=== PATIENT | male | born 1955 | race Caucasian/White ===

== ENCOUNTER 2020-12-10 22:15 | Emergency (ER) | payer SELFPAY ==
[2020-12-10] MEDS ORDERED: Pepcid 20 MG VIAL IV ONE (23:05)
[2020-12-10] MEDS ORDERED: solu-MEDROL 125 MG ONE (23:05)
[2020-12-10] MEDS: Pepcid 20 MG VIAL IV ONE (23:08)
[2020-12-10] MEDS: solu-MEDROL 125 MG IV ONE (23:08)
[2020-12-10 23:09] LABS: Absolute Neutrophil Ct (ANC) 9.21 (1.4-6.9); BASOPHIL % 0.2 % (0.0-0.4); Basophil (Absolute #) 0.03 (0-0.4); Eosinophil % 1.2 % (0.00-5.0); Eosinophil (Absolute #) 0.15 (0-0.5); Hematocrit 28.7 % (42-50); Hemoglobin 8.3 gm/dl (12.5-18.0); Lymphocyte (Absolute #) 1.94 (1.0-4.6); Lymphocytes % 15.7 % (24.0-44.0); Mean Cell Volume 82.9 fl (78-100); Mean Corpuscular Hgb Concent. 28.9 g/dl (32-36); Mean Platelet Volume 8.5 fl (7.5-11.0); Monocyte (Absolute #) 1.01 (0.0-1.3); Monocytes % 8.2 % (0.0-12.0); Neutrophil % 74.7 % (36.0-66.0); Platelet Count 525 K/mm3 (150-450); Red Blood Count 3.46 M/mm3 (4.1-5.6); Red Cell Distribution Width 15.3 % (11.5-14.0); White Blood Count 12.3 K/mm3 (4.0-10.5)
--- NOTE | 2020-12-10 23:20 | ERPHSYRPT ---
- History of Present Illness Time Seen by Provider: 12/10/20 22:25 Source: patient Exam Limitations: no limitations Patient Subjective Stated Complaint: pt states he has been having some tightness in his throat since approx 2029. states he had fish the last 3 weeks on fridays and thinks it was cooked in the same oil as shrimp and caused him to have an allergic reaction. states he was seen in [facility]nesday and was given a shot that relieved symptoms until today at approx 2030 Triage Nursing Assessment: pt alert and oriented, answers questions approp. pt ambulatory with steady gait noted. respriations nonlabored with lungs cta. pt clearing throat frequently. skin warm and dry. heart rate 68 on monitor, sinus rhythm. Physician History: Patient is a 65-year-old male presents to our ED with throat tightness that started at 8:30 PM. Patient believes his tightness is due to a food allergy particularly shrimp as he has been eating at a restaurant and believes the food had been cooked in shrimp oil. Patient has been eating at the same restaurant all week. He had similar symptoms on Wednesday. Patient went to an [facility] [place] care for the same thing. He was treated with steroids and symptoms resolved. Alessandro nt ate at that same restaurant prior to arrival and the symptoms have recurred. No associated chest pain or shortness of breath. No nausea vomiting or diaphoresis. No respiratory distress. Patient voices no other complaints or concerns at this time. Timing/Duration: today Severity: mild Modifying Factors: Improves With: nothing Associated Symptoms: denies symptoms Home Medications: Bp Med 12/10/20 [History] Metformin HCl 500 mg [Glucophage 500 MG] 0 mg PO BIDWM 12/10/20 [History] Hx Tetanus, Diphtheria Vaccination/Date Given: Yes Hx Influenza Vaccination/Date Given: Yes Hx Pneumococcal Vaccination/Date Given: No Immunizations Up to Date: Yes Travel Risk - International Travel Have you traveled outside of the country in past 3 weeks: No - Coronavirus Screening Are you exhibiting any of the following symptoms?: No Close contact with a COVID-19 positive Pt in past 14-21 Days: No - Review of Systems Constitutional: No Symptoms, No Fever, No Chills Eyes: No Symptoms Ears, Nose, & Throat: No Symptoms Respiratory: No Symptoms, No Cough, No Dyspnea Cardiac: No Symptoms, No Chest Pain, No Edema, No Syncope Abdominal/Gastrointestinal: No Symptoms, No Abdominal Pain, No Nausea, No Vomiting, No Diarrhea Genitourinary Symptoms: No Symptoms, No Dysuria Musculoskeletal: No Symptoms, No Back Pain, No Neck Pain Skin: No Symptoms, No Rash Neurological: No Symptoms, No Dizziness, No Focal Weakness, No Sensory Changes Psychological: No Symptoms Endocrine: No Symptoms Hematologic/Lymphatic: No Symptoms Immunological/Allergic: No Symptoms All Other Systems: Reviewed and Negative - Past Medical History Pertinent Past Medical History: Yes Cardiac History: No Pertinent History Endocrine Medical History: Diabetes Type II GI Medical History: GERD, Ulcer - Past Surgical History Past Surgical History: No - Social History Smoking Status: Former smoker Exposure to second hand smoke: No Drug Use: none Patient Lives Alone: Yes - Nursing Vital Signs Nursing Vital Signs: Initial Vital Signs Temperature 98.4 F 12/10/20 22:23 Pulse Rate 81 12/10/20 22:23 Respiratory Rate 18 12/10/20 22:23 Blood Pressure 173/77 12/10/20 22:23 O2 Sat by Pulse Oximetry 100 12/10/20 22:23 Pain Scale Pain Intensity 0 - Physical Exam General Appearance: no apparent distress, alert Eye Exam: PERRL/EOMI, eyes nml inspection Ears, Nose, Throat Exam: normal ENT inspection, TMs normal, pharynx normal, moist mucous membranes Neck Exam: normal inspection, non-tender, supple, full range of motion Respiratory Exam: normal breath sounds, lungs clear, No respiratory distress Cardiovascular Exam: regular rate/rhythm, normal heart sounds, normal peripheral pulses Gastrointestinal/Abdomen Exam: soft, normal bowel sounds, No tenderness, No mass Back Exam: normal inspection, normal range of motion, No CVA tenderness, No vertebral tenderness Extremity Exam: normal inspection, normal range of motion, pelvis stable Neurologic Exam: alert, oriented x 3, cooperative, normal mood/affect, nml cerebellar function, nml station & gait, sensation nml, No motor deficits Skin Exam: normal color, warm, dry, No rash Lymphatic Exam: No adenopathy SpO2 Interpretation: normal SpO2: 100 O2 Delivery: Room Air - Course Nursing assessment & vital signs reviewed: Yes EKG Interpreted by Me: RATE ([id number]), Sinus Rhythm, NORMAL AXIS, NORMAL INTERVALS Ordered Tests: Active Orders 24 hr Category Date Time Status EKG-ER Only STAT Care 12/10/20 22:35 Active CBC W DIFF Stat Lab 12/10/20 23:00 Completed CMP Stat Lab 12/10/20 23:00 Completed MAGNESIUM Stat Lab 12/10/20 23:00 Completed TROPONIN Q3H Lab 12/10/20 23:00 Completed TROPONIN Q3H Lab 12/11/20 00:38 Completed TROPONIN Q3H Lab 12/11/20 04:45 Ordered TROPONIN Q3H Lab 12/11/20 07:45 Ordered TROPONIN Q3H Lab 12/11/20 10:45 Ordered Medication Summary Discontinued Medications Generic Name Dose Route Start Last Admin Trade Name Freq PRN Reason Stop Dose Admin Famotidine 20 mg 12/10/20 22:38 12/10/20 23:08 Pepcid 20 Mg Vial IV 12/10/20 22:39 20 mg STAT ONE Administration Famotidine Confirm 12/10/20 23:05 Pepcid 20 Mg Vial Administered 12/10/20 23:06 Dose 20 mg IV .STK-MED ONE Methylprednisolone Sodium Succinate 125 mg 12/10/20 22:37 12/10/20 23:08 Solu-Medrol 125 Mg IV 12/10/20 22:38 125 mg STAT ONE Administration Methylprednisolone Sodium Succinate Confirm 12/10/20 23:05 Solu-Medrol 125 Mg Administered 12/10/20 23:06 Dose 125 mg .ROUTE .STK-MED ONE Lab/Rad Data: Laboratory Result Diagrams 12/10/20 23:00 12/10/20 23:00 Laboratory Results 12/11/20 12/10/20 12/10/20 Range/Units 00:38 23:00 23:00 WBC (4.0-10.5) K/mm3 RBC (4.1-5.6) M/mm3 Hgb (12.5-18.0) gm/dl Hct (42-50) % MCV (78-100) fl MCH (26-32) pg MCHC (32-36) g/dl RDW (11.5-14.0) % Plt Count (150-450) K/mm3 MPV (7.5-11.0) fl Gran % (36.0-66.0) % Eos # (Auto) (0-0.5) Absolute Lymphs (auto) (1.0-4.6) Absolute Monos (auto) (0.0-1.3) Lymphocytes % (24.0-44.0) % Monocytes % (0.0-12.0) % Eosinophils % (0.00-5.0) % Basophils % (0.0-0.4) % Absolute Granulocytes (1.4-6.9) Basophils # (0-0.4) Sodium 137 (137-145) mmol/L Potassium 4.3 (3.5-5.1) mmol/L Chloride 102 (98-107) mmol/L Carbon Dioxide 24 (22-30) mmol/L Anion Gap 14.3 (5-15) MEQ/L BUN 21 H (9-20) mg/dL Creatinine 1.17 (0.66-1.25) mg/dL Estimated GFR > 60.0 ML/MIN Glucose 190 H (74-106) mg/dL Calcium 9.2 (8.4-10.2) mg/dL Magnesium 2.2 (1.6-2.3) mg/dL Total Bilirubin 0.40 (0.2-1.3) mg/dL AST 31 (17-59) U/L ALT 29 (0-50) U/L Alkaline Phosphatase 83 (38-126) U/L Troponin I < 0.012 < 0.012 (0.000-0.034) ng/mL Serum Total Protein 7.9 (6.3-8.2) g/dL Albumin 4.4 (3.5-5.0) g/dL Slides for Path Review 12/10/20 Range/Units 23:00 WBC 12.3 H (4.0-10.5) K/mm3 RBC 3.46 L (4.1-5.6) M/mm3 Hgb 8.3 L (12.5-18.0) gm/dl Hct 28.7 L (42-50) % MCV 82.9 (78-100) fl MCH 24.0 L (26-32) pg MCHC 28.9 L (32-36) g/dl RDW 15.3 H (11.5-14.0) % Plt Count 525 H (150-450) K/mm3 MPV 8.5 (7.5-11.0) fl Gran % 74.7 H (36.0-66.0) % Eos # (Auto) 0.15 (0-0.5) Absolute Lymphs (auto) 1.94 (1.0-4.6) Absolute Monos (auto) 1.01 (0.0-1.3) Lymphocytes % 15.7 L (24.0-44.0) % Monocytes % 8.2 (0.0-12.0) % Eosinophils % 1.2 (0.00-5.0) % Basophils % 0.2 (0.0-0.4) % Absolute Granulocytes 9.21 H (1.4-6.9) Basophils # 0.03 (0-0.4) Sodium (137-145) mmol/L Potassium (3.5-5.1) mmol/L Chloride (98-107) mmol/L Carbon Dioxide (22-30) mmol/L Anion Gap (5-15) MEQ/L BUN (9-20) mg/dL Creatinine (0.66-1.25) mg/dL Estimated GFR ML/MIN Glucose (74-106) mg/dL Calcium (8.4-10.2) mg/dL Magnesium (1.6-2.3) mg/dL Total Bilirubin (0.2-1.3) mg/dL AST (17-59) U/L ALT (0-50) U/L Alkaline Phosphatase (38-126) U/L Troponin I (0.000-0.034) ng/mL Serum Total Protein (6.3-8.2) g/dL Albumin (3.5-5.0) g/dL Slides for Path Review YES - Progress Progress: improved Progress Note: Work up of 8.3. There is no acute blood loss. This is likely chronic. Patient otherwise asymptomatic. This finding was discussed with Dr. Proctor. She agrees that this may be worked up as an outpatient. Patient will be discharged home. Patient reassessed. He is asymptomatic. We will discharge patient home with corresponding allergy medications. He is to follow-up with his primary care doctor within 48 hours for reevaluation. 12/11/20 01:12 Discussed with : Gabriela Will see patient in: other Counseled pt/family regarding: lab results, diagnosis, need for follow-up, rad results - Departure Departure Disposition: Home Clinical Impression: Allergic reaction, Anemia Condition: Stable Critical Care Time: No Referrals: ALLEN GUERRERO NYLA [Primary Care Provider] - Additional Instructions: Discharge/Care Plan MEENA MCGEE was seen on 12/11/20 in the Emergency Room. The patient was counseled regarding Diagnosis,Lab results, Imaging studies, need for follow up and when to return to the Emergency Room. Prescriptions given: Discharge Note I have spoken with the patient and/or caregivers. I have explained the patient's condition, diagnosis and treatment plan based on the information available to me at this time. I have answered the patient's and/or caregiver's questions and addressed any concerns. The patient and/or caregivers have as good understanding of the patient's diagnosis, condition and treatment plan as can be expected at this point. The vital signs have been stable. The patient's condition is stable and appropriate for discharge from the emergency department. The patient will pursue further outpatient evaluation with the primary care physician or other designated or consulting physician as outlined in the discharge instructions. The patient and/or caregivers are agreeable to this plan of care and follow-up instructions have been explained in detail. The patient and/or caregivers have received these instruction. The patient/and or caregivers are aware that any significant change in condition or worsening of symptoms should prompt an immediate return to this or the closest emergency department or call 911. Prescriptions: Prednisone 10 mg [Deltasone 10 mg] 40 mg PO DAILY 3 Days #12 tablet EPINEPHrine [Epinephrine] 0.15 mg IJ 1HRPRIOR #2 [email or web address]
[2020-12-10 23:21] LABS: ALBUMIN 4.4 g/dL (3.5-5.0); ALKALINE PHOSPHATASE 83 U/L (38-126); ANION GAP 14.3 MEQ/L (5-15); BLOOD UREA NITROGEN 21 mg/dL (9-20); CHLORIDE 102 mmol/L (98-107); Calcium 9.2 mg/dL (8.4-10.2); Carbon Dioxide 24 mmol/L (22-30); Creatinine 1 1.17 mg/dL (0.66-1.25); EST GLOMERULAR FILTRATION RATE > 60.0 ML/MIN; Glucose 190 mg/dL (74-106); MAGNESIUM 2.2 mg/dL (1.6-2.3); Potassium 4.3 mmol/L (3.5-5.1); SGOT/AST 31 U/L (17-59); SGPT/ALT 29 U/L (0-50); SODIUM 137 mmol/L (137-145); Total Protein 7.9 g/dL (6.3-8.2)
[2020-12-10 23:54] LABS: Slide Review 1 YES
[2020-12-11 01:36] VITALS: BP 147/63; PULSE 65; O2SAT 99
== END 2020-12-11 01:35 | disposition home or self-care (01) ==
LOC: ED 22:15
DX: T78.1XXA Other adverse food reactions, not elsewhere classified, initial encounter (principal); R07.0 Pain in throat; D64.9 Anemia, unspecified; E11.9 Type 2 diabetes mellitus without complications
CPT/HCPCS: 36000; 36415; 80053; 83735; 84484; 85025; 93005; 96374; 96375; 99284; J2930